=== PATIENT | male | born 1965 | race Caucasian/White ===

== ENCOUNTER 2022-11-25 02:59 | Emergency (ER) | payer OTHER ==
[~2022-11-25] VITALS: Ht 167.6 cm; Wt 90.7 kg
[2022-12-25] MEDS ORDERED: NORFLEX100MG PO (03:20)
[2022-12-25] MEDS ORDERED: KETO10TA2 PO (03:20)
== END 2022-11-25 04:18 | disposition home or self-care (01) ==
LOC: ER 02:59
DX: M54.16 Radiculopathy, lumbar region (principal)

== ENCOUNTER → 2022-12-24 | Emergency (ER) | payer OTHER ==
[~2022-12-24] VITALS: Ht 175.3 cm; Wt 95.3 kg
[~2022-12-24] MED LIST: KETO10TA2 PO; NORFLEX100MG PO
== END | disposition home or self-care (01) ==
LOC: ER 20:34
PROVIDERS: Emergency Medicine
DX: M54.50 Low back pain, unspecified (principal)

== ENCOUNTER 2022-12-25 09:39 | Outpatient (CLI) | payer OTHER | END 2022-12-25 09:47 | disposition home or self-care (01) | LOC: TOM 09:39 | PROVIDERS: ATTEND Specialist | DX: M54.59 Other low back pain (principal); R31.29 Other microscopic hematuria; Z12.5 Encounter for screening for malignant neoplasm of prostate; Z13.1 Encounter for screening for diabetes mellitus ==

== ENCOUNTER → 2022-12-25 11:02 | Outpatient (CLI) | payer OTHER | END | disposition home or self-care (01) | LOC: LAB 11:02 | PROVIDERS: ATTEND Specialist | DX: Z12.5 Encounter for screening for malignant neoplasm of prostate (principal); M54.59 Other low back pain; R31.29 Other microscopic hematuria; Z13.1 Encounter for screening for diabetes mellitus ==

== ENCOUNTER 2022-12-25 13:19 | Emergency (ER) | payer OTHER ==
[~2022-12-25] VITALS: Ht 165.1 cm; Wt 89.8 kg
== END 2022-12-25 17:36 | disposition home or self-care (01) ==
LOC: ER 13:20
PROVIDERS: Emergency Medicine
DX: N20.9 Urinary calculus, unspecified (principal); R10.9 Unspecified abdominal pain